=== PATIENT | male | born 1950 | race Caucasian/White ===

== ENCOUNTER 2024-04-09 12:35 | Outpatient (CLI) | payer MEDICARE | END 2024-04-09 23:59 | disposition home or self-care (01) | LOC: RAD 12:35 | PROVIDERS: ATTEND Physician Assistant Surgical | DX: M25.811 Other specified joint disorders, right shoulder (principal); M19.011 Primary osteoarthritis, right shoulder; M25.511 Pain in right shoulder; M79.89 Other specified soft tissue disorders | CPT/HCPCS: 76881 ==